=== PATIENT | female | born 1960 | race Two or more races ===

== ENCOUNTER 2018-06-15 14:20 | Emergency (ER) | payer OTHER ==
[2018-06-15] MEDS ORDERED: ASPIRIN 81 MG CHEWABLE TAB PO ONE (14:23)
--- NOTE | 2018-06-15 14:50 | EDPHY ---
H & P Stated Complaint: 4 days of cp left side and arm Time Seen by Provider: 06/15/18 14:50 HPI/ROS: HPI CHIEF COMPLAINT: Chest pain, left arm pain. 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 The patient presents emergency room left-sided chest pain she describes a dull sensation radiates down her left arm left shoulder and left back. This been going on very frequently almost constant for the past 4 days. She does complain of pain when she exerts service getting worse. She never had anything like this before. She denies previous cardiovascular history other than hypertension. She has never had a cardiac evaluation. She denies significant shortness of breath, denies fever, denies productive cough. Denies pleuritic pain. States she decided come the emergency room today due to ongoing discomfort. Could not sleep last night. Past Medical History: Significant medical history for hypertension, hyperlipidemia, diabetes. Past Surgical History: Denies recent surgery Social History: Denies drugs alcohol tobacco. Family History: Family history of hypertension PCP: [facility] MIJARES REVIEW OF SYSTEMS: 10 Systems were reviewed and negative with the exception of the elements mentioned in the history of present illness. Exam Constitutional triage nursing summary reviewed, vital signs reviewed, awake/ alert. Vital signs stable slightly hypertensive. Eyes normal conjunctivae and sclera, EOMI, PERRLA. HENT normal inspection, atraumatic, moist mucus membranes, no epistaxis, neck supple/ no meningismus, no raccoon eyes. Respiratory clear to auscultation bilaterally, normal breath sounds, no respiratory distress, no wheezing. Cardiovascular rate normal, regular rhythm, no murmur, no edema, distal pulses normal. Gastrointestinal soft, non-tender, no rebound, no guarding, normal bowel sounds, no distension, no pulsatile mass. Genitourinary no CVA tenderness. Musculoskeletal no midline vertebral tenderness, full range of motion, no calf swelling, no tenderness of extremities, no meningismus, good pulses, neurovascularly intact. Skin pink, warm, & dry, no rash, skin atraumatic. Neurologic awake, alert and oriented x 3, AAOx3, moves all 4 extremities equally, motor intact, sensory intact, CN II-XII intact, normal cerebellar, normal vision, normal speech. Psychiatric normal mood/affect. Heme/Lymph/Immune no lymphadenopathy. Differential Diagnosis: Differential diagnosis includes but is not limited to: ACS, atypical chest pain, pneumothorax, pneumonia, pulmonary embolism, aortic dissection, congestive heart failure, tumor, musculoskeletal pain, esophageal pain, GERD, peptic ulcer disease, pancreatitis Medical Decision Making: Plan for this patient IV establishment blood draw, school bus monitor, EKG, chest x-ray, troponin, D-dimer, and re-evaluate. Full- dose aspirin be given, dose of nitroglycerin. Re-evaluation: EKG interpretation by me on record in [employer] system. Impression time of EKG 14 40, sinus rhythm rate of 98, I do not appreciate acute ischemia. Cardiovascular risk factors include her age, hypertension, hyperlipidemia, diabetes Heart Score calculated as 5.0. (HTN, HLD, DM, Age, Cardiac Story) Trop 0.00 Full dose asprin given IV Fluid Bolus Given. UA ordered. D-dimer negative. Chest x-ray no evidence of acute cardiopulmonary disease. EKG interpretation by me on record in [employer] system. Impression this is a repeat EKG time of EKG 1551, sinus rhythm rate of 94 again I do not appreciate acute ischemia. 1556: Patient re-evaluated this time after full-dose aspirin and 1 of nitro. Chest pain initially was 8/10, now 5/10. Will give 2nd dose of nitroglycerin. Her is at bedside at this time. BS 434 BMP okay, no evidence of DKA. Patient re-evaluated this time still complains of chest pain. Is down to 4/10 with 2 nitroglycerines full-dose aspirin. I will give her dose of morphine 4 mg IV to see if this improves her pain further. She has had stable EKGs here x2. Repeating her troponin. She does complain of some left shoulder pain as well. Does have some musculoskeletal component to it. Will obtain a left shoulder x-ray however given her cardiovascular risk factors and chest pain plan will be for admission to the hospital overnight for further cardiac evaluation. She has a heart score 5. Patient is agreed to be admitted. I offered to be admitted at [facility] however she has declined this and would like to be admitted to [facility]. 17 10 re-evaluation patient resting comfortably she is without chest pain after morphine. X-ray of her left shoulder reviewed shows no acute abnormality. Plan for transfer to [facility] admission for chest pain evaluation , hyperglycemia. The patient has the following cardiovascular risk factors which includes hypertension, hyperlipidemia, diabetes, and age. She had 2-troponins here. 2 nonischemic EKGs. Chest x-ray unremarkable. She has agreed for transfer to [facility] Patient accepted by [facility] Keen. Appropriate transfer will bet set up EMTALA form will be filled out. Source: Patient - Personal History Current Tetanus/Diphtheria Vaccine: Unsure Current Tetanus Diphtheria and Acellular Pertussis (TDAP): Unsure - Medical/Surgical History Hx Asthma: No Hx Chronic Respiratory Disease: No Hx Diabetes: Yes Hx Cardiac Disease: No Other PMH: DM. csec x 3 - Social History Smoking Status: Never smoked Constitutional: Initial Vital Signs Temperature (C) 37.1 C 06/15/18 14:29 Heart Rate 93 06/15/18 14:29 Respiratory Rate 16 06/15/18 14:29 Blood Pressure 148/93 H 06/15/18 14:29 O2 Sat (%) 95 06/15/18 14:29 O2 Delivery Mode Room Air Allergies/Adverse Reactions: No Known Allergies Allergy (Verified 06/15/18 14:28) Home Medications: Medication Instructions Recorded AMITRIPTYLINE HCL [Amitriptyline 25 mg PO HS 11/23/10 25 mg] FLUoxetine [Prozac] 20 mg PO 11/23/10 Lisinopril 30 mg PO 11/23/10 Lovastatin 20 mg PO DAILY 11/23/10 Metformin HCl 500 mg PO 11/23/10 Rosiglitazone Maleate [Avandia] 8 mg PO 11/23/10 Dicloxacillin Sodium 12/23/12 Hydrocodone/APAP 5/325 [[place] 1 - 2 tab PO Q4PRN PRN #15 tab 10/09/13 5/325 (*)] Medical Decision Making - Diagnostics Imaging Results: Imaging Impressions Chest X-Ray 06/15/18 14:49 Impression: Chest negative for acute abnormality. Shoulder X-Ray 06/15/18 16:34 Impression: Negative for fracture. - Data Points Laboratory Results: 06/15/18 06/15/18 06/15/18 16:40 15:03 14:58 POC Sodium 139 mEq/L mEq/L (135-145) POC Potassium 3.6 mEq/L mEq/L (3.3-5.0) POC Chloride 101.0 mEq/L mEq/L (97-110) POC Total CO2 21 mEq/L L mEq/L (22-31) POC BUN 9 mg/dL mg/dL (7-23) POC Creatinine 0.7 mg/dL mg/dL (0.6-1.0) POC Glucose 434 mg/dL H mg/dL (70-100) POC Calcium 9.0 mg/dL mg/dL (8.5-10.4) POC Total Bilirubin 0.9 mg/dL mg/dL (0.1-1.4) POC AST 26 IU/L IU/L (14-46) POC ALT 31 IU/L IU/L (9-52) POC Alk Phosphatase 99 IU/L IU/L (38-126) POC Troponin I 0.00 ng/mL ng/mL 0.00 ng/mL ng/mL (0.00-0.08) (0.00-0.08) POC Total Protein 6.7 g/dL g/dL (6.3-8.2) POC Albumin 3.2 g/dL L g/dL (3.5-5.0) Medications Given: Discontinued Medications Aspirin (Aspirin) 324 mg PO EDNOW ONE Stop: 06/15/18 14:24 Last Admin: 06/15/18 15:17 Dose: 324 mg Sodium Chloride (Ns) 1,000 mls @ 0 mls/hr IV ONCE ONE PRN Reason: Wide Open Stop: 06/15/18 15:29 Last Admin: 06/15/18 15:39 Dose: 1,000 mls Morphine Sulfate (Morphine) 4 mg IVP EDNOW ONE Stop: 06/15/18 16:34 Last Admin: 06/15/18 16:54 Dose: 4 mg Nitroglycerin (Nitrostat) 0.4 mg SL EDNOW ONE Stop: 06/15/18 15:02 Last Admin: 06/15/18 16:03 Dose: 0.4 mg Ondansetron HCl (Zofran) 4 mg IVP EDNOW ONE Stop: 06/15/18 16:35 Last Admin: 06/15/18 16:52 Dose: 4 mg Point of Care Test Results: CBC CBC Collection Date 06/15/18 CBC Collection Time 14:45 WBC 4.23 RBC 4.53 HGB 14.5 HCT 40.3 PLT 237 Neut # 2.18 Neut 51.6 LYMPH # 1.72 LYMPH 40.7 MCV 89.0 Chemistry 06/15/18 06/15/18 06/15/18 16:40 15:03 14:58 POC Sodium 139 mEq/L mEq/L (135-145) POC Potassium 3.6 mEq/L mEq/L (3.3-5.0) POC Chloride 101.0 mEq/L mEq/L (97-110) POC Total CO2 21 mEq/L L mEq/L (22-31) POC BUN 9 mg/dL mg/dL (7-23) POC Creatinine 0.7 mg/dL mg/dL (0.6-1.0) POC Glucose 434 mg/dL H mg/dL (70-100) POC Calcium 9.0 mg/dL mg/dL (8.5-10.4) POC Total Bilirubin 0.9 mg/dL mg/dL (0.1-1.4) POC AST 26 IU/L IU/L (14-46) POC ALT 31 IU/L IU/L (9-52) POC Alk Phosphatase 99 IU/L IU/L (38-126) POC Troponin I 0.00 ng/mL ng/mL 0.00 ng/mL ng/mL (0.00-0.08) (0.00-0.08) POC Total Protein 6.7 g/dL g/dL (6.3-8.2) POC Albumin 3.2 g/dL L g/dL (3.5-5.0) D-Dimer D-Dimer Collection Date 06/15/18 D-Dimer Collection Time 14:45 D-Dimer (ng/ml) LESS THAN 100 Departure - Departure Disposition: Acute Care Hospital Not [facility] Clinical Impression: Hyperglycemia, Hypertension Chest pain Qualifiers: Chest pain type: unspecified Qualified Code(s): R07.9 - Chest pain, unspecified Condition: Fair Referrals: NONE *PRIMARY CARE P,. [Primary Care Provider] - As per Instructions
[2018-06-15] MEDS: NITROGLYCERIN 0.4 MG BTL SL ONE ×2 (15:22→16:03)
[2018-06-15] MEDS ORDERED: NS 1,000 ML IV ONE ×2 (15:28→18:05)
[2018-06-15] MEDS ORDERED: ONDANSETRON 4 MG/2 ML VIAL IVP ONE (16:34)
[2018-06-15 19:16] VITALS: BP 161/92
--- NOTE | 2018-06-19 08:04 | CPEKG ---
Test Reason : OPEN Blood Pressure : / mmHG Vent. Rate : 094 BPM Atrial Rate : 094 BPM P-R Int : 147 ms QRS Dur : 078 ms QT Int : 357 ms P-R-T Axes : 027 017 037 degrees QTc Int : 447 ms Sinus rhythm Probable left atrial enlargement Confirmed by Alphonse Mehta ([id number]) on 06/19/2018 8:03:57 AM Referred By: Alphonse Mehta Confirmed By:Alphonse Mehta
--- NOTE | 2018-06-21 08:13 | CPEKG ---
Test Reason : OPEN Blood Pressure : / mmHG Vent. Rate : 098 BPM Atrial Rate : 098 BPM P-R Int : 155 ms QRS Dur : 076 ms QT Int : 354 ms P-R-T Axes : 015 025 048 degrees QTc Int : 453 ms Sinus rhythm Confirmed by Alphonse Mehta ([id number]) on 06/21/2018 8:12:57 AM Referred By: Alphonse Mehta Confirmed By:Alphonse Mehta
== END 2018-06-15 19:05 | disposition short-term general hospital (02) ==
LOC: CED 14:20
DX: R07.89 Other chest pain (principal); M25.512 Pain in left shoulder; E11.65 Type 2 diabetes mellitus with hyperglycemia; E86.9 Volume depletion, unspecified; I10 Essential (primary) hypertension; E78.5 Hyperlipidemia, unspecified; Z79.4 Long term (current) use of insulin
CPT/HCPCS: 71045-PO; 73030-PO; 80053-ER; 84484-ER; 85025-QW-ER; 85379-QW-ER; 96361-ER; 96374-ER; 96375-ER; 99285-ER; J2270; J2405